=== PATIENT | male | born 1970 | race Caucasian/White ===

== ENCOUNTER 2019-02-19 17:39 | Emergency (ER) | payer SELFPAY ==
[2019-02-19 17:47] VITALS: BP 118/79
[2019-02-19] MEDS ORDERED: IBUPROFEN PO ONE (18:10)
[2019-02-19] MEDS ORDERED: NORCO PO ONE (18:37)
--- NOTE | 2019-02-19 18:38 | Emergency Department Report ---
HPI - General Chief Complaint: Extremity Injury, Upper Time Seen by Provider: 02/19/19 18:08 - HPI HPI: COMES TO ER SP INJURY AT WORK TO R HAND. ROM LIMITED WITH PAIN. SWELLING AND BRUISING PROX 3RD FINGER. RADIAL AND ULNAR PULSE PLUS 2. RAPID CAP REFILL. NO OTHER INJURY. AMBULATORY VSS ED Past Medical Hx - Past Medical History Previous Medical History?: No - Surgical History Past Surgical History?: No - Social History Smoking Status: Never Smoker Substance Use Type: Alcohol - Medications Home Medications: Home Medications Medication Instructions Recorded Confirmed Last Taken Type traMADol [Ultram] 50 mg PO Q6HR PRN #10 tablet 02/19/19 Unknown Rx ED Review of Systems ROS: Stated complaint: RT HAND INJURY/MIDDLE FINGER Other details as noted in HPI Comment: All other systems reviewed and negative Physical Exam - Physical Exam Vital Signs: Vital Signs 02/19/19 17:45 Temperature 97.7 F Pulse Rate 59 L Respiratory 20 Rate Blood Pressure 118/79 O2 Sat by Pulse 98 Oximetry Physical Exam: ALERT AND ORIENTED SKI BASE TRIMMER USED NO FOCAL DEF S1S2 LUNGS CTA ABD SNT R HAND PAIN WITH SWELLING OVER PIP 3RD FINGER RAPID CAP REFILL SENSATION INTACT ED Course Vital Signs 02/19/19 17:45 Temperature 97.7 F Pulse Rate 59 L Respiratory 20 Rate Blood Pressure 118/79 O2 Sat by Pulse 98 Oximetry ED Medical Decision Making - Radiology Data Radiology results: report reviewed, image reviewed - Medical Decision Making XRAY POS FX ICE MEDICATED FOR PAIN SPLINT PLACED NEUROVASC INTACT BEFORE AND AFTER SPLINT PLACED DC HOME WITH DC PLAN OF CARE AND ORTHO FOLLOW UP Vital Signs 02/19/19 17:45 Temperature 97.7 F Pulse Rate 59 L Respiratory 20 Rate Blood Pressure 118/79 O2 Sat by Pulse 98 Oximetry - Differential Diagnosis RO FX Critical care attestation.: If time is entered above; I have spent that time in minutes in the direct care of this critically ill patient, excluding procedure time. ED Disposition Clinical Impression: Boxers fracture Disposition: DC-01 TO HOME OR SELFCARE Is pt being admited?: No Does the pt Need Aspirin: No Condition: Stable Instructions: Hand Fracture (ED) Additional Instructions: LEAVE SPLINT ON ICE TONIGHT ELEVATE TONIGHT ON PILLOWS MOTRIN OR TYLENOL OVER THE COUNTER FOR MILD PAIN MEDS TODAY ORDERED FOLLOW UP WITH DR ERIC NEXT WEEK REFERRAL BELOW CALL IN AM AND MAKE APPOINTMENT Prescriptions: traMADol [Ultram] 50 mg PO Q6HR PRN #10 tablet PRN Reason: Pain Referrals: DEIDRE ERIC MD [Staff Physician] - 3-5 Days Time of Disposition: 18:55
--- NOTE | 2019-02-19 18:50 | XRay Report ---
RIGHT HAND 4 VIEWS INDICATION / CLINICAL INFORMATION: injury with deformity to right middle digit. COMPARISON: None available. FINDINGS: There is an acute mildly displaced fracture involving the proximal third of long finger proximal phal anx which does not extend into the MCP joint. No other fracture or dislocation is seen within the rig ht hand. 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 Signer Name: Jared Menezes MD Signed: 02/19/2019 6:46 PM Workstation Name: [id number]
== END 2019-02-19 19:40 | disposition home or self-care (01) ==
LOC: ED 17:39
DX: S62.612A Displaced fracture of proximal phalanx of right middle finger, initial encounter for closed fracture (principal); Z79.899 Other long term (current) drug therapy; W22.8XXA Striking against or struck by other objects, initial encounter; Y93.89 Activity, other specified; Y92.89 Other specified places as the place of occurrence of the external cause; Y99.8 Other external cause status